=== PATIENT | male | born 1970 | race Caucasian/White ===

== ENCOUNTER 2024-04-03 17:11 | Emergency (ER) | payer MEDICAID, OTHER ==
[~2024-04-03] VITALS: Ht 182.9 cm; Wt 90.9 kg
[2024-04-03 19:20] LABS: Basophils # (auto) 0.1 10 ^3/uL (0-0.2); Eosinophils # (auto) 0.1 10 ^3/uL (0-0.8); Eosinophils % (auto) 0.6 % (0.0-7.0); Hematocrit 33.1 % (41.0-53.0); Hemoglobin 10.7 g/dL (13.5-17.5); Monocytes # (auto) 0.9 10 ^3/uL (0-1.3)
[2024-04-03 19:22] LABS: Basophils % (auto) 0.7 % (0.0-2.0); Lymphocytes # (auto) 1.2 10 ^3/uL (0.4-5.4); Lymphocytes % (auto) 11.1 % (10.0-50.0); Mean Corpuscular Hemoglobin 26.6 pg (28.0-32.0); Mean Corpuscular Hgb Conc. 32.3 g/dL (32.0-36.0); Mean Corpuscular Volume 82.4 fL (80.0-100.0); Monocytes % (auto) 8.2 % (0.0-12.0); Neutrophils # (auto) 8.9 10 ^3/uL (1.6-8.6); Neutrophils % (auto) 79.4 % (37.0-80.0); Nucleated Red Blood Cells % 0.1 %; Red Blood Cells 4.02 10^6/uL (4.5-5.90); Red Cell Distribution Width 17.5 % (11.8-14.3); White Blood Cell 11.2 10^3/uL (4.4-10.8)
[2024-04-03 19:29] LABS: Anion Gap 10 (5-15); Carbon Dioxide 20 mmol/L (20-30); Chloride 105 mmol/L (98-107); Potassium 3.3 mmol/L (3.5-5.1); Sodium 135 mmol/L (136-145)
[2024-04-03 19:30] LABS: Calcium 9.2 mg/dL (8.5-10.1)
[2024-04-03] MEDS: SODIUM CHLORIDE 0.9% 1,000 ML IV ONE (19:30)
[2024-04-03 19:35] LABS: BUN/Creatinine Ratio 10.4 (10.0-20.0); Blood Alcohol < 3.0 mg/dL (<10); Blood Urea Nitrogen 11 mg/dL (9-23); Glucose 95 mg/dL (74-106)
[2024-04-04 00:05] VITALS: BP 153/73; PULSE 79; RESP 23; O2SAT 98
[2024-04-04] MEDS ORDERED: PER60TP TOP (01:12)
== END 2024-04-04 01:26 | disposition home or self-care (01) ==
LOC: ER 17:11 → EDBD 17:11 → ER 04-04 01:26
DX: T67.8XXA Other effects of heat and light, initial encounter (principal); B86 Scabies; X58.XXXA Exposure to other specified factors, initial encounter; Y93.89 Activity, other specified; Y92.89 Other specified places as the place of occurrence of the external cause; Y99.8 Other external cause status
CPT/HCPCS: 36415; 80048; 80320; 83605; 85025; 96360; 99283; J7030

== ENCOUNTER 2024-06-07 07:07 | Inpatient (IN) | payer MEDICAID ==
[~2024-06-07] VITALS: Ht 188 cm; Wt 85.5 kg
[~2024-06-07 07:07] MED LIST: PER60TP TOP
[2024-06-07] MEDS: MORPHINE SULFATE 4 MG/ML SYR/VIAL IM ONE (08:17)
[2024-06-07] MEDS: KETOROLAC TROMETH 30 MG/ML 1ML VIAL IM ONE (08:18)
[2024-06-07] MEDS: DexAMETHasone 4 MG TAB PO ONE (08:18)
[2024-06-07 09:55] VITALS: PULSE 86; RESP 16; O2SAT 95
[2024-06-07 13:30] LABS: Basophils # (auto) 0 10 ^3/uL (0-0.2); Basophils % (auto) 0.3 % (0.0-2.0); Eosinophils # (auto) 0 10 ^3/uL (0-0.8); Eosinophils % (auto) 0.1 % (0.0-7.0); Hematocrit 29.7 % (41.0-53.0); Hemoglobin 9.7 g/dL (13.5-17.5); Lymphocytes # (auto) 0.4 10 ^3/uL (0.4-5.4); Lymphocytes % (auto) 2.9 % (10.0-50.0); Mean Corpuscular Hgb Conc. 32.6 g/dL (32.0-36.0); Mean Corpuscular Volume 82.9 fL (80.0-100.0); Monocytes # (auto) 0.4 10 ^3/uL (0-1.3); Neutrophils # (auto) 12.9 10 ^3/uL (1.6-8.6); Neutrophils % (auto) 93.7 % (37.0-80.0); Platelet Count (auto) 367 10^3/uL (140-450); Red Blood Cells 3.59 10^6/uL (4.5-5.90); Red Cell Distribution Width 18.5 % (11.8-14.3); White Blood Cell 13.7 10^3/uL (4.4-10.8)
[2024-06-07 13:47] LABS: Alanine Aminotransferase 18 U/L (7-40); Albumin 3.6 g/dL (3.2-4.8); Alkaline Phosphatase 86 U/L (46-116); Anion Gap 9 (5-15); Aspartate Aminotransferase 38 U/L (13-40); BUN/Creatinine Ratio 18.6 (10.0-20.0); Bilirubin, Total 0.9 mg/dL (0.2-1.0); Blood Urea Nitrogen 16 mg/dL (9-23); Carbon Dioxide 22 mmol/L (20-30); Chloride 101 mmol/L (98-107); Creatine Kinase IFCC 184 U/L (46-171); Glucose 155 mg/dL (74-106); Potassium 3.7 mmol/L (3.5-5.1); Sodium 132 mmol/L (136-145); Total Protein 7.1 g/dL (5.7-8.2)
[2024-06-07 14:14] LABS: Urine Bacteria None Seen /hpf (None Seen)
[2024-06-07] MEDS ORDERED: DOCUSATE SOD 100 MG CAP PO PRN (14:15)
[2024-06-07] MEDS ORDERED: ONDANSETRON HCL 4 MG/2 ML VIAL IV PRN (14:15)
[2024-06-07] MEDS ORDERED: NITROGLYCERIN 0.4 MG SL TAB SL PRN (14:15)
[2024-06-07] MEDS ORDERED: SODIUM CHLORIDE 0.9% 1,000 ML IV SCH (14:15)
[2024-06-07] MEDS: SODIUM CHLORIDE 0.9% 1,000 ML IV ONE (14:25)
[2024-06-07] MEDS: SODIUM CHLORIDE 0.9% 1,000 ML IV SCH (14:37)
[2024-06-07 14:38] LABS: Urine Blood Negative /uL (Negative); Urine Clarity Clear (Clear); Urine Color Yellow (Yellow); Urine Protein, UAD Negative (Negative); Urine Specific Gravity 1.013 (1.001-1.035); Urine Urobilinogen Normal (Negative); Urine WBC <1 /hpf (0 - 3)
[2024-06-07 15:55] VITALS: BP 158/90; PULSE 76; RESP 18; TEMP 98.3; O2SAT 98
[2024-06-07 16:00] VITALS: BP 162/90; PULSE 74; RESP 19; TEMP 98; O2SAT 96
[2024-06-07] MEDS ORDERED: SERT100T PO (16:17)
[2024-06-07] MEDS ORDERED: BUSP10TA90 PO (16:17)
[2024-06-07] MEDS ORDERED: RISP4TAB25 PO (16:17)
[2024-06-07 17:00] VITALS: BP 160/86; PULSE 76; RESP 18; TEMP 97.9; O2SAT 97
[2024-06-07 21:00] VITALS: BP 135/80; PULSE 78; RESP 18; TEMP 98.4; O2SAT 98
[2024-06-08] VITALS (7 sets, daily range): BP systolic 142–164; BP diastolic 66–87; PULSE 64–86; RESP 18–22; TEMP 98–99; O2SAT 95–100
[2024-06-08] MEDS ORDERED: SERT-160 PO (01:56)
[2024-06-08] MEDS ORDERED: BUSP30TA PO (01:56)
[2024-06-08] MEDS ORDERED: RISP4TAB53 PO (01:56)
[2024-06-08 07:15] LABS: Basophils # (auto) 0 10 ^3/uL (0-0.2); Basophils % (auto) 0.1 % (0.0-2.0); Eosinophils # (auto) 0 10 ^3/uL (0-0.8); Hematocrit 28.4 % (41.0-53.0); Hemoglobin 9.2 g/dL (13.5-17.5); Lymphocytes # (auto) 1.1 10 ^3/uL (0.4-5.4); Lymphocytes % (auto) 6.4 % (10.0-50.0); Mean Corpuscular Hemoglobin 26.8 pg (28.0-32.0); Mean Corpuscular Hgb Conc. 32.5 g/dL (32.0-36.0); Mean Corpuscular Volume 82.3 fL (80.0-100.0); Monocytes # (auto) 1.2 10 ^3/uL (0-1.3); Monocytes % (auto) 7.1 % (0.0-12.0); Neutrophils # (auto) 14.2 10 ^3/uL (1.6-8.6); Neutrophils % (auto) 86.4 % (37.0-80.0); Platelet Count (auto) 351 10^3/uL (140-450); Red Blood Cells 3.45 10^6/uL (4.5-5.90); Red Cell Distribution Width 17.8 % (11.8-14.3); White Blood Cell 16.4 10^3/uL (4.4-10.8)
[2024-06-08 07:39] LABS: Alanine Aminotransferase 17 U/L (7-40); Albumin 3.2 g/dL (3.2-4.8); Alkaline Phosphatase 75 U/L (46-116); Anion Gap 8 (5-15); Aspartate Aminotransferase 38 U/L (13-40); BUN/Creatinine Ratio 25.7 (10.0-20.0); Bilirubin, Total 0.6 mg/dL (0.2-1.0); Blood Urea Nitrogen 19 mg/dL (9-23); Calcium 8.6 mg/dL (8.7-10.4); Carbon Dioxide 21 mmol/L (20-30); Chloride 101 mmol/L (98-107); Glucose 106 mg/dL (74-106); Potassium 3.9 mmol/L (3.5-5.1); Sodium 130 mmol/L (136-145); Total Protein 6.5 g/dL (5.7-8.2)
[2024-06-08] MEDS: ENOXAPARIN SOD 40 MG/0.4 ML SYRINGE SC SCH (09:32)
[2024-06-08] MEDS ORDERED: VANCOMYCIN PER PHARMACY 0 MG IV SCH (10:45)
[2024-06-08] MEDS: HYDROcodone-ACET 10/325MG TAB PO PRN (11:55)
[2024-06-08 14:55] LABS: Erythrocyte Sedimentation Rate 19 mm/hr (0-20)
[2024-06-08] MEDS: VANCOMYCIN 1.25GM/250ML 250 ML IV ONE (18:37)
[2024-06-08] MEDS: cefTRIAXone 2GM/50ML D5W 50 ML IV ONE (19:21)
[2024-06-09 01:00] VITALS: BP 158/85; PULSE 84; RESP 18; TEMP 98.2; O2SAT 97
[2024-06-09 05:00] VITALS: BP_SYST 151; BP_SYST 163; BP_DIAS 80; BP_DIAS 90; PULSE 74; PULSE 85; RESP 16; RESP 20; TEMP 98.1; TEMP 98.3; O2SAT 96; O2SAT 98
[2024-06-09 07:04] LABS: Basophils # (auto) 0 10 ^3/uL (0-0.2); Basophils % (auto) 0.2 % (0.0-2.0); Eosinophils # (auto) 0 10 ^3/uL (0-0.8); Eosinophils % (auto) 0.3 % (0.0-7.0); Hematocrit 28.1 % (41.0-53.0); Hemoglobin 9.5 g/dL (13.5-17.5); Lymphocytes # (auto) 0.9 10 ^3/uL (0.4-5.4); Lymphocytes % (auto) 8.5 % (10.0-50.0); Mean Corpuscular Hemoglobin 27.6 pg (28.0-32.0); Mean Corpuscular Hgb Conc. 33.8 g/dL (32.0-36.0); Mean Corpuscular Volume 81.6 fL (80.0-100.0); Monocytes # (auto) 0.6 10 ^3/uL (0-1.3); Monocytes % (auto) 5.7 % (0.0-12.0); Neutrophils # (auto) 8.8 10 ^3/uL (1.6-8.6); Neutrophils % (auto) 85.3 % (37.0-80.0); Platelet Count (auto) 331 10^3/uL (140-450); Red Blood Cells 3.44 10^6/uL (4.5-5.90); Red Cell Distribution Width 17.7 % (11.8-14.3); White Blood Cell 10.4 10^3/uL (4.4-10.8)
[2024-06-09 07:14] LABS: Alanine Aminotransferase 17 U/L (7-40); Albumin 3.1 g/dL (3.2-4.8); Alkaline Phosphatase 68 U/L (46-116); Anion Gap 5 (5-15); Aspartate Aminotransferase 28 U/L (13-40); Bilirubin, Total 0.6 mg/dL (0.2-1.0); Blood Urea Nitrogen 12 mg/dL (9-23); Calcium 8.3 mg/dL (8.7-10.4); Carbon Dioxide 25 mmol/L (20-30); Chloride 99 mmol/L (98-107); Glucose 96 mg/dL (74-106); Magnesium 1.6 mg/dL (1.6-2.6); Potassium 3.7 mmol/L (3.5-5.1); Sodium 129 mmol/L (136-145); Total Protein 6.1 g/dL (5.7-8.2)
[2024-06-09 07:20] LABS: BUN/Creatinine Ratio 17.1 (10.0-20.0)
[2024-06-09 08:25] VITALS: PULSE 80; RESP 24; O2SAT 100
[2024-06-09 09:00] VITALS: BP 160/90; PULSE 80; RESP 24; TEMP 98; O2SAT 100
[2024-06-09] MEDS: cloNIDine HCL 0.1 MG TAB PO PRN (11:29)
[2024-06-09] MEDS: VANCOMYCIN 1GM/200ML 200 ML IV SCH (12:14)
[2024-06-09 13:00] VITALS: BP 169/74; PULSE 81; RESP 20; TEMP 98.6; O2SAT 97
[2024-06-09] MEDS: cefTRIAXone 1GM/50ML D5W 50 ML IV ONE (14:03)
[2024-06-09] MEDS: LORazepam 0.5 MG TAB PO ONE (16:06)
[2024-06-09 16:35] LABS: Hepatitis A Total Antibody Negative (Negative); Hepatitis B Surface Antibody Negative (Negative); Hepatitis B Surface Antigen Negative (Negative)
[2024-06-09 16:38] LABS: Hepatitis B Core Total AB Positive (Negative); Hepatitis C Antibody Positive (Negative)
[2024-06-09 21:00] VITALS: BP 119/94; PULSE 88; RESP 17; TEMP 99.9; O2SAT 96
[2024-06-10] VITALS (7 sets, daily range): BP systolic 125–165; BP diastolic 79–97; PULSE 78–94; RESP 18–21; TEMP 98.1–99.8; O2SAT 96–100
[2024-06-10 02:58] LABS: Amphetamine Screen, Urine Pos (NEGATIVE); Barbiturate Scree,Urine Neg (NEGATIVE); Benzodiazephine Screen, Urine Neg (NEGATIVE); Cannabinoid Screen, Urine Pos (NEGATIVE); Cocaine Screen, Urine Neg (NEGATIVE); Opiate Scree,Urine Neg (NEGATIVE); Phencyclidine Screen, Urine Neg (NEGATIVE)
[2024-06-10] MEDS ORDERED: PATIENTS OWN MEDICATION (Buspirone Hcl 1 TAB) PO SCH (10:00)
[2024-06-10] MEDS ORDERED: SERTRALINE HCL PO SCH (10:00)
[2024-06-10 10:06] LABS: PSA Free <0.02 ng/mL; Prostate Specific Antigen <0.1 ng/mL (0.0-4.0)
[2024-06-10 10:30] LABS: Albumin 2.4 g/dL (2.9-4.4); Alpha-1-Globulin 0.3 g/dL (0.0-0.4); Alpha-2-Globulin 0.6 g/dL (0.4-1.0); Gamma Globulin 1.5 g/dL (0.4-1.8); Globulin Total 3.5 g/dL (2.2-3.9); Protein Total Serum 5.9 g/dL (6.0-8.5)
[2024-06-10] MEDS: cefTRIAXone 1GM/50ML D5W 50 ML IV SCH (10:42)
[2024-06-10] MEDS: SERTRALINE HCL 50 MG TAB PO SCH (10:43)
[2024-06-10] MEDS: busPIRone HCL 10 MG TAB PO SCH (10:43)
[2024-06-10 14:00] LABS: INR 1.17 (0.9-1.15); Partial Thromboplastin Time 31.3 SEC (24.5-34.5); Prothrombin Time 12.3 sec (9.3-11.8)
[2024-06-10] MEDS: risperiDONE 1 MG TAB PO SCH (18:36)
[2024-06-10] MEDS ORDERED: RISPERIDONE 4 MG PO SCH (22:00)
[2024-06-11] VITALS (8 sets, daily range): BP systolic 124–147; BP diastolic 77–85; PULSE 69–79; RESP 16–21; TEMP 97.9–99.2; O2SAT 93–100
[2024-06-11 06:38] LABS: Basophils # (auto) 0 10 ^3/uL (0-0.2); Basophils % (auto) 0.2 % (0.0-2.0); Eosinophils # (auto) 0.1 10 ^3/uL (0-0.8); Eosinophils % (auto) 0.6 % (0.0-7.0); Hematocrit 27.3 % (41.0-53.0); Hemoglobin 9.3 g/dL (13.5-17.5); Lymphocytes # (auto) 0.7 10 ^3/uL (0.4-5.4); Lymphocytes % (auto) 6.9 % (10.0-50.0); Mean Corpuscular Hemoglobin 27.6 pg (28.0-32.0); Mean Corpuscular Volume 81.2 fL (80.0-100.0); Monocytes % (auto) 9.7 % (0.0-12.0); Neutrophils # (auto) 8.3 10 ^3/uL (1.6-8.6); Neutrophils % (auto) 82.6 % (37.0-80.0); Platelet Count (auto) 352 10^3/uL (140-450); Red Blood Cells 3.36 10^6/uL (4.5-5.90); Red Cell Distribution Width 17.1 % (11.8-14.3); White Blood Cell 10.1 10^3/uL (4.4-10.8)
[2024-06-11 06:43] LABS: Alanine Aminotransferase 13 U/L (7-40); Alkaline Phosphatase 68 U/L (46-116); Anion Gap 4 (5-15); Aspartate Aminotransferase 30 U/L (13-40); BUN/Creatinine Ratio 19.4 (10.0-20.0); Bilirubin, Total 0.5 mg/dL (0.2-1.0); Blood Urea Nitrogen 13 mg/dL (9-23); Calcium 8.3 mg/dL (8.7-10.4); Carbon Dioxide 26 mmol/L (20-30); Chloride 100 mmol/L (98-107); Glucose 100 mg/dL (74-106); Potassium 3.9 mmol/L (3.5-5.1); Sodium 130 mmol/L (136-145); Total Protein 6.3 g/dL (5.7-8.2)
[2024-06-11] MEDS ORDERED: ePHEDrine SULFATE 50 MG/ML AMP IV PRN (11:30)
[2024-06-11] MEDS ORDERED: MORPHINE SULFATE 4 MG/ML SYR/VIAL IV PRN ×2 (11:30)
[2024-06-11] MEDS ORDERED: PROPOFOL 10 MG/ML 20 ML IV ONE (11:43)
[2024-06-11] MEDS ORDERED: ONDANSETRON HCL 4 MG/2 ML VIAL ONE (11:43)
[2024-06-11] MEDS ORDERED: KETOROLAC TROMETH 30 MG/ML 1ML VIAL ONE (11:43)
[2024-06-11] MEDS ORDERED: fentaNYL CITRATE 100 MCG/2 ML VL ONE (11:58)
[2024-06-11] MEDS: LIDOCAINE W/ EPINEPHRINE 2% INJ 20ML VIAL ONE (15:32)
[2024-06-11] MEDS: BUPIVACAINE 0.25% INJ 50ML VIAL ONE (15:32)
[2024-06-11] MEDS: ONDANSETRON HCL 4 MG/2 ML VIAL IV ONE (15:32)
[2024-06-11] MEDS: ceFAZolin 2 GM/D5W100ml 100 ML IV ONE (15:32)
[2024-06-12 07:05] LABS: Basophils # (auto) 0 10 ^3/uL (0-0.2); Basophils % (auto) 0.4 % (0.0-2.0); Eosinophils # (auto) 0.1 10 ^3/uL (0-0.8); Eosinophils % (auto) 1.1 % (0.0-7.0); Hematocrit 29.2 % (41.0-53.0); Hemoglobin 9.3 g/dL (13.5-17.5); Lymphocytes # (auto) 0.9 10 ^3/uL (0.4-5.4); Lymphocytes % (auto) 11.3 % (10.0-50.0); Mean Corpuscular Hemoglobin 26.4 pg (28.0-32.0); Mean Corpuscular Hgb Conc. 31.9 g/dL (32.0-36.0); Mean Corpuscular Volume 82.8 fL (80.0-100.0); Monocytes % (auto) 12.3 % (0.0-12.0); Neutrophils # (auto) 5.9 10 ^3/uL (1.6-8.6); Neutrophils % (auto) 74.9 % (37.0-80.0); Nucleated Red Blood Cells % 0.1 %; Platelet Count (auto) 386 10^3/uL (140-450); Red Blood Cells 3.52 10^6/uL (4.5-5.90); Red Cell Distribution Width 17.7 % (11.8-14.3); White Blood Cell 7.9 10^3/uL (4.4-10.8)
[2024-06-12 07:12] LABS: Chloride 102 mmol/L (98-107); Potassium 4.7 mmol/L (3.5-5.1); Sodium 129 mmol/L (136-145)
[2024-06-12 07:13] LABS: Anion Gap 4 (5-15); Calcium 8.3 mg/dL (8.7-10.4); Carbon Dioxide 23 mmol/L (20-30)
[2024-06-12 07:18] LABS: BUN/Creatinine Ratio 15.6 (10.0-20.0); Blood Urea Nitrogen 10 mg/dL (9-23); Glucose 98 mg/dL (74-106)
[2024-06-12 09:00] VITALS: BP 139/83; PULSE 68; RESP 19; TEMP 98.3; O2SAT 96
[2024-06-12 09:07] LABS: Albumin Urine 13.5 % (.); Alpha-1-Globulin Urine 4.9 % (.); Alpha-2-Globulin Urine 11.3 % (.); Beta Globulin Urine 32.2 % (.); Gamma Globulin Urine 38.1 % (.); Protein Total Urine 13.8 mg/dL (Not Estab.)
[2024-06-12 13:00] VITALS: BP 149/78; PULSE 68; RESP 18; TEMP 98; O2SAT 100
[2024-06-12 21:00] VITALS: BP 157/83; PULSE 89; RESP 18; TEMP 98; O2SAT 98
[2024-06-13] VITALS (8 sets, daily range): BP systolic 141–161; BP diastolic 75–96; PULSE 20–82; RESP 17–20; TEMP 97.2–98.5; O2SAT 97–100
[2024-06-13 06:52] LABS: Calcium 8.5 mg/dL (8.7-10.4); Chloride 103 mmol/L (98-107); Potassium 4.6 mmol/L (3.5-5.1); Sodium 133 mmol/L (136-145)
[2024-06-13 06:53] LABS: Anion Gap 5 (5-15); Carbon Dioxide 25 mmol/L (20-30)
[2024-06-13 06:58] LABS: BUN/Creatinine Ratio 19.7 (10.0-20.0); Blood Urea Nitrogen 12 mg/dL (9-23); Glucose 94 mg/dL (74-106)
[2024-06-13 07:13] LABS: Mean Corpuscular Hemoglobin 27.2 pg (28.0-32.0); Mean Corpuscular Hgb Conc. 32.3 g/dL (32.0-36.0); Mean Corpuscular Volume 84.1 fL (80.0-100.0); Platelet Count (auto) 391 10^3/uL (140-450); Red Blood Cells 3.68 10^6/uL (4.5-5.90); Red Cell Distribution Width 17.7 % (11.8-14.3); White Blood Cell 7.6 10^3/uL (4.4-10.8)
[2024-06-13 07:20] LABS: Band Neutrophils % (manual) 0; Basophils % (manual) 0 (0.0-2.0); Blast Cells 0; Metamyelocytes % 0; Myelocytes % 0; Promyelocytes % 0; Reactive Lymphocytes 0
[2024-06-13 09:27] LABS: Eosinophils % (manual) 2 (0-7); Lymphocytes % (manual) 13 (10.0-50.0); Monocytes % (manual) 11 (0-12); Platelet Estimate Adequate
[2024-06-14 01:00] VITALS: BP 140/66; PULSE 74; RESP 16; TEMP 98; O2SAT 97
[2024-06-14 05:00] VITALS: BP 132/72; PULSE 68; RESP 16; TEMP 97.9; O2SAT 97
[2024-06-14 07:29] LABS: Anion Gap 4 (5-15); Carbon Dioxide 27 mmol/L (20-30); Chloride 102 mmol/L (98-107); Potassium 4.5 mmol/L (3.5-5.1); Sodium 133 mmol/L (136-145)
[2024-06-14 07:30] LABS: Calcium 8.6 mg/dL (8.7-10.4)
[2024-06-14 07:35] LABS: BUN/Creatinine Ratio 23.9 (10.0-20.0); Blood Urea Nitrogen 17 mg/dL (9-23); Glucose 92 mg/dL (74-106)
[2024-06-14 09:26] VITALS: BP 157/87; PULSE 66; RESP 18; TEMP 97.5; O2SAT 100
[2024-06-14 13:04] VITALS: BP 112/61; PULSE 74; RESP 20; TEMP 98.8; O2SAT 98
[2024-06-14 21:00] VITALS: BP 121/65; PULSE 71; RESP 20; TEMP 97.7; O2SAT 100
[2024-06-15] VITALS (7 sets, daily range): BP systolic 107–154; BP diastolic 62–93; PULSE 68–89; RESP 19–20; TEMP 97.4–98.6; O2SAT 96–100
[2024-06-15 07:42] LABS: Hematocrit 26.7 % (41.0-53.0); Hemoglobin 9.6 g/dL (13.5-17.5); Mean Corpuscular Hemoglobin 28.7 pg (28.0-32.0); Mean Corpuscular Hgb Conc. 35.8 g/dL (32.0-36.0); Mean Corpuscular Volume 80.1 fL (80.0-100.0); Platelet Count (auto) 436 10^3/uL (140-450); Red Blood Cells 3.33 10^6/uL (4.5-5.90); Red Cell Distribution Width 17.7 % (11.8-14.3); White Blood Cell 9.5 10^3/uL (4.4-10.8)
[2024-06-15 07:45] LABS: Alanine Aminotransferase 17 U/L (7-40); Alkaline Phosphatase 67 U/L (46-116); Anion Gap 5 (5-15); Aspartate Aminotransferase 30 U/L (13-40); BUN/Creatinine Ratio 30.9 (10.0-20.0); Blood Urea Nitrogen 21 mg/dL (9-23); Calcium 8.8 mg/dL (8.7-10.4); Carbon Dioxide 25 mmol/L (20-30); Chloride 102 mmol/L (98-107); Glucose 93 mg/dL (74-106); Potassium 4.6 mmol/L (3.5-5.1); Sodium 132 mmol/L (136-145)
[2024-06-15 07:46] LABS: Bilirubin, Total 0.2 mg/dL (0.2-1.0)
[2024-06-15 07:54] LABS: Band Neutrophils % (manual) 0; Basophils % (manual) 0 (0.0-2.0); Blast Cells 0; Metamyelocytes % 0; Promyelocytes % 0
[2024-06-15 08:50] LABS: Eosinophils % (manual) 3 (0-7); Lymphocytes % (manual) 16 (10.0-50.0); Monocytes % (manual) 11 (0-12); Myelocytes % 2; Reactive Lymphocytes 1
[2024-06-15 08:52] LABS: Anisocytosis Slight; Large Platelets FEW; Platelet Estimate Adequa
[2024-06-15] MEDS: VANCOMYCIN 1GM/200ML 200 ML IV SCH (12:00)
[2024-06-16] VITALS (8 sets, daily range): BP systolic 94–143; BP diastolic 58–79; PULSE 71–86; RESP 17–22; TEMP 97.7–98.7; O2SAT 94–99
[2024-06-16 07:02] LABS: Hemoglobin 9.3 g/dL (13.5-17.5); Red Cell Distribution Width 17.8 % (11.8-14.3)
[2024-06-16 07:04] LABS: Hematocrit 27.9 % (41.0-53.0); Mean Corpuscular Hemoglobin 26.4 pg (28.0-32.0); Mean Corpuscular Hgb Conc. 33.2 g/dL (32.0-36.0); Mean Corpuscular Volume 79.5 fL (80.0-100.0); Platelet Count (auto) 447 10^3/uL (140-450); Red Blood Cells 3.51 10^6/uL (4.5-5.90); White Blood Cell 11.3 10^3/uL (4.4-10.8)
[2024-06-16 07:14] LABS: Basophils % (manual) 0 (0.0-2.0); Blast Cells 0; Promyelocytes % 0; Reactive Lymphocytes 0
[2024-06-16 07:24] LABS: Alanine Aminotransferase 15 U/L (7-40); Albumin 2.9 g/dL (3.2-4.8); Alkaline Phosphatase 63 U/L (46-116); Anion Gap 5 (5-15); Aspartate Aminotransferase 23 U/L (13-40); Blood Urea Nitrogen 19 mg/dL (9-23); Calcium 8.7 mg/dL (8.7-10.4); Carbon Dioxide 26 mmol/L (20-30); Chloride 98 mmol/L (98-107); Glucose 96 mg/dL (74-106); Magnesium 1.8 mg/dL (1.6-2.6); Potassium 4.4 mmol/L (3.5-5.1); Sodium 129 mmol/L (136-145)
[2024-06-16 07:25] LABS: Bilirubin, Total 0.2 mg/dL (0.2-1.0); Total Protein 6.8 g/dL (5.7-8.2)
[2024-06-16 09:03] LABS: Band Neutrophils % (manual) 5; Eosinophils % (manual) 2 (0-7); Lymphocytes % (manual) 18 (10.0-50.0); Metamyelocytes % 4; Monocytes % (manual) 8 (0-12); Myelocytes % 3
[2024-06-16 09:04] LABS: Anisocytosis Slight; Platelet Estimate Adequate
[2024-06-16] MEDS: GADOTERATE MEG 10 MMOL/20ml INJ (0.5MMOL/ml) IV ONE (17:51)
[2024-06-17] VITALS (7 sets, daily range): BP systolic 126–143; BP diastolic 63–81; PULSE 69–89; RESP 17–21; TEMP 97.8–98.9; O2SAT 97–99
[2024-06-17 07:55] LABS: White Blood Cell 10.7 10^3/uL (4.4-10.8)
[2024-06-17 08:00] LABS: Hematocrit 25.7 % (41.0-53.0); Hemoglobin 8.7 g/dL (13.5-17.5); Mean Corpuscular Hgb Conc. 33.9 g/dL (32.0-36.0); Mean Corpuscular Volume 79.5 fL (80.0-100.0); Platelet Count (auto) 410 10^3/uL (140-450); Red Blood Cells 3.24 10^6/uL (4.5-5.90); Red Cell Distribution Width 17.3 % (11.8-14.3)
[2024-06-17 08:05] LABS: Basophils % (manual) 0 (0.0-2.0); Blast Cells 0; Eosinophils % (manual) 0 (0-7); Promyelocytes % 0; Reactive Lymphocytes 0
[2024-06-17 08:24] LABS: Alanine Aminotransferase 16 U/L (7-40); Alkaline Phosphatase 59 U/L (46-116); Anion Gap 5 (5-15); BUN/Creatinine Ratio 29.6 (10.0-20.0); Blood Urea Nitrogen 21 mg/dL (9-23); Calcium 8.5 mg/dL (8.7-10.4); Carbon Dioxide 26 mmol/L (20-30); Chloride 104 mmol/L (98-107); Glucose 88 mg/dL (74-106); Potassium 4.5 mmol/L (3.5-5.1)
[2024-06-17 08:25] LABS: Albumin 2.9 g/dL (3.2-4.8); Aspartate Aminotransferase 21 U/L (13-40); Sodium 135 mmol/L (136-145)
[2024-06-17 08:26] LABS: Bilirubin, Total 0.2 mg/dL (0.2-1.0); Total Protein 6.6 g/dL (5.7-8.2)
[2024-06-17 08:48] LABS: Band Neutrophils % (manual) 7; Lymphocytes % (manual) 21 (10.0-50.0); Metamyelocytes % 2; Monocytes % (manual) 5 (0-12); Myelocytes % 5; Platelet Estimate Adequate
[2024-06-18 01:00] VITALS: BP 143/83; PULSE 83; RESP 20; TEMP 97.9; O2SAT 97
[2024-06-18 05:00] VITALS: BP 144/78; PULSE 73; RESP 19; TEMP 98.2; O2SAT 97
[2024-06-18 08:06] LABS: Immunoglobulin A 998 mg/dL (90-386); Immunoglobulin G, Serum 1826 mg/dL (603-1613); Immunoglobulin M 72 mg/dL (20-172)
[2024-06-18 09:00] VITALS: BP 129/74; PULSE 54; RESP 18; TEMP 98; O2SAT 97
[2024-06-18] MEDS ORDERED: BACDST PO (09:09)
[2024-06-18 09:58] VITALS: BP 125/79
[2024-06-18 13:00] VITALS: BP 130/80; PULSE 60; RESP 20; TEMP 98.3; O2SAT 98
[2024-06-18 13:07] LABS: Albumin 2.2 g/dL (2.9-4.4); Alpha-1-Globulin 0.4 g/dL (0.0-0.4); Alpha-2-Globulin 0.6 g/dL (0.4-1.0); Globulin Total 4.2 g/dL (2.2-3.9); Protein Total Serum 6.4 g/dL (6.0-8.5)
[2024-06-18 16:06] LABS: Kappa Lite Chain Free Serum 123.7 mg/L (3.3-19.4)
[2024-06-18 17:00] VITALS: BP 122/66; PULSE 79; RESP 24; TEMP 98.3; O2SAT 100
== END 2024-06-18 17:25 | disposition home health service (06) | DRG 383 ==
LOC: EDUNIT# 07:07 → EDBD 07:07 → ER 07:07 → OVERFLOW 14:12 → CENTRAL 15:54
PROVIDERS: ADMIT Nurse Practitioner Family; ATTEND Internal Medicine
PROC: 0Y9C00Z Drainage of Right Upper Leg with Drainage Device, Open Approach (ICD-10-PCS; principal; 2024-06-11 11:42)
DX: L02.415 Cutaneous abscess of right lower limb (principal); R65.10 Systemic inflammatory response syndrome (SIRS) of non-infectious origin without acute organ dysfunction; F20.9 Schizophrenia, unspecified; F15.10 Other stimulant abuse, uncomplicated; B19.20 Unspecified viral hepatitis C without hepatic coma; D50.9 Iron deficiency anemia, unspecified; M51.16 Intervertebral disc disorders with radiculopathy, lumbar region; Z59.00 Homelessness unspecified; Z79.899 Other long term (current) drug therapy
CPT/HCPCS: 36415; 70450; 71045; 72131; 72158; 72170; 73723; 80048; 80053; 80202; 80307; 81001; 82306; 82550; 82565; 82784; 83521; 83615; 83735; 84154; 84155; 84156; 84165; 84166; 84443; 85007; 85025; 85027; 85045; 85610; 85652; 85730; 86141; 86334; 86703; 86704; 86706; 86708; 86803; 86850; 86900; 86901; 87070; 87075; 87077; 87186; 87205; 87340; 93005; 93970; 97110; 97116; 97163; 97530; G0378; J1885; J2405; J2704; J3490